=== PATIENT | female | born 1970 | race Two or more races ===

== ENCOUNTER 2024-03-14 02:05 | Emergency (ER) | payer OTHER ==
[~2024-03-14] VITALS: Ht 165.1 cm; Wt 95.5 kg
[~2024-03-14 02:05] MED LIST: ALBU1.252 IH; ALBU8HFA4 IH; FLUT1BLS PO
[2024-03-14 02:58] LABS: COVID AG,FIA SOURCE NASAL SWAB
[2024-03-14 03:12] LABS: INFLUENZA TYPE A NEGATIVE FOR TYPE A (NEGATIVE); INFLUENZA TYPE B NEGATIVE FOR TYPE B (NEGATIVE)
[2024-03-14 03:15] LABS: SARS-COV2 (COVID) ANTIGEN,FIA Negative (Negative)
[2024-03-14 07:52] VITALS: TEMP 99.7
[2024-03-14] MEDS: ALBUTEROL SULFATE 2.5 MG/0.5 ML NEB SOLUTION NEB PRN (08:33)
[2024-03-14] MEDS: IPRATROPIUM BROMIDE 0.5 MG/2.5 ML NEB SOLUTION NEB PRN (08:33)
[2024-03-14 08:34] VITALS: PULSE 80; RESP 16; O2SAT 98
[2024-03-14 08:35] VITALS: PULSE 76; RESP 16; O2SAT 98
[2024-03-14] MEDS: PredniSONE 20 MG TABLET PO ONE (09:06)
[2024-03-14] MEDS ORDERED: BUDE10.7 IH (09:09)
[2024-03-14] MEDS: ALBUTEROL SULFATE HFA 90 MCG/PUFF 8 GM INHALER IH ONE (09:35)
[2024-03-14] MEDS: ALBUTEROL SULFATE 2.5 MG/0.5 ML NEB SOLUTION NEB ONE (09:35)
[2024-03-14] MEDS: IPRATROPIUM BROMIDE 0.5 MG/2.5 ML NEB SOLUTION NEB ONE (09:35)
[2024-03-14 09:36] VITALS: PULSE 85; RESP 16; O2SAT 95
[2024-03-14 09:37] VITALS: PULSE 85; RESP 16; O2SAT 97
[2024-03-14 10:29] VITALS: BP 159/85; PULSE 98; RESP 18; O2SAT 97
[2024-03-14] MEDS ORDERED: PRED-554 PO (10:53)
[2024-03-14] MEDS ORDERED: ALBU18HF12 IH (10:55)
[2024-03-14] MEDS ORDERED: BUDE10.26 IH (10:55)
== END 2024-03-14 11:38 | disposition home or self-care (01) ==
LOC: EMS 02:05
DX: J45.901 Unspecified asthma with (acute) exacerbation (principal); J44.1 Chronic obstructive pulmonary disease with (acute) exacerbation; Z90.49 Acquired absence of other specified parts of digestive tract; Z90.710 Acquired absence of both cervix and uterus; Z90.89 Acquired absence of other organs; Z98.51 Tubal ligation status; Z20.822 Contact with and (suspected) exposure to COVID-19
CPT/HCPCS: 99284; 71045; 87426; 87804; 94640; J7512; J3535; 99285; J7613